=== PATIENT | female | born 1995 | race African-American/Black ===

== ENCOUNTER 2025-01-13 03:27 | Emergency (ER) | payer BC, MEDICAID ==
[~2025-01-13] VITALS: Ht 165.1 cm; Wt 73.0 kg
[2025-01-13 03:35] VITALS: TEMP 36.9; O2SAT 98
[2025-01-13] MEDS ORDERED: IBUP-2029 MT (05:53)
[2025-01-13 06:17] VITALS: BP 136/88; PULSE 80; RESP 18
[2025-01-13] MEDS: IBUPROFEN 600MG TABLET PO ONE (06:17)
== END 2025-01-13 06:33 | disposition home or self-care (01) ==
LOC: ER 03:27
DX: M79.18 Myalgia, other site (principal); I10 Essential (primary) hypertension; J45.909 Unspecified asthma, uncomplicated; Z59.01 Sheltered homelessness; Z76.5 Malingerer [conscious simulation]
CPT/HCPCS: 99283

== ENCOUNTER 2025-01-20 22:45 | Emergency (ER) | payer BC, MEDICAID ==
[~2025-01-20] VITALS: Ht 170.2 cm; Wt 85.0 kg
[~2025-01-20 22:45] MED LIST: IBUP-2029 MT
[2025-01-20 22:46] VITALS: O2SAT 99
[2025-01-20] MEDS: ACETAMINOPHEN 325MG TABLET PO ONE (23:44)
[2025-01-20 23:45] LABS: CHLORIDE 105 mEq/L (98-107); SODIUM 139 mEq/L (136-145)
[2025-01-20 23:46] LABS: CARBON DIOXIDE 26 mEq/L (21-32)
[2025-01-20 23:47] LABS: CALCIUM 9.1 mg/dL (8.7-10.4)
[2025-01-20 23:51] LABS: CREATININE 0.8 mg/dL (0.6-1.0); GLUCOSE 75 mg/dL (70-105)
[2025-01-20 23:52] LABS: UREA NITROGEN BLOOD 10 mg/dL (9-23)
[2025-01-21 00:58] LABS: ETHANOL BLOOD < 10 mg/dL (<10)
[2025-01-21 01:33] LABS: HCG SCREEN NEGATIVE
[2025-01-21 02:11] LABS: BASOPHILS % 0.4 % (0.0-2.0); DIFFERENTIAL COMMENT 0; EOSINOPHILS % 4.2 % (0.0-5.0); HEMATOCRIT. 37.5 % (36.0-48.0); HEMOGLOBIN. 12.6 g/dL (12.0-16.0); LYMPHOCYTES % 37.8 % (20.0-50.0); MEAN CORPUSCULAR HEMOGLOBIN 30.6 pg (28.0-32.0); MEAN CORPUSCULAR HGB CONC 33.6 g/dL (31.0-37.0); MEAN CORPUSCULAR VOLUME 90.9 fL (81.0-99.0); MEAN PLATELET VOLUME 10.2 fl (7.4-10.4); NEUTROPHILS % 49.6 % (40.0-76.0); PLATELET 330 x1000/uL (130-400); RED BLOOD CELL COUNT 4.12 mill/uL (4.2-5.4); RED CELL DISTRIBUTION WIDTH 13.1 % (11.6-14.6); WHITE BLOOD COUNT 8.3 x1000/uL (4.5-11.0)
[2025-01-21] MEDS ORDERED: ACET-2708 MT (03:48)
[2025-01-21 04:00] VITALS: BP 118/80; PULSE 86; RESP 16; TEMP 36.8; O2SAT 99
[2025-01-21] MEDS ORDERED: CEPH500C2 MT (17:21)
[2025-01-21] MEDS ORDERED: OFLO5DRO4 LEFT EAR (17:21)
[2025-01-21] MEDS ORDERED: NAPR-681 PO (17:21)
== END 2025-01-21 04:03 | disposition home or self-care (01) ==
LOC: ER 22:45
DX: G89.29 Other chronic pain (principal); M79.18 Myalgia, other site; Z00.00 Encounter for general adult medical examination without abnormal findings; F20.9 Schizophrenia, unspecified; I10 Essential (primary) hypertension; J45.909 Unspecified asthma, uncomplicated; Z59.00 Homelessness unspecified
CPT/HCPCS: 36415; 80048; 80320; 84703; 85025; 99283; G0480

== ENCOUNTER 2025-01-21 13:48 | Emergency (ER) | payer BC, MEDICAID ==
[~2025-01-21] VITALS: Ht 170.2 cm; Wt 85.3 kg
[~2025-01-21 13:48] MED LIST changes: +ACET-2708 MT
[2025-01-21 13:55] VITALS: O2SAT 20
[2025-01-21 14:19] VITALS: TEMP 36.7; O2SAT 100
[2025-01-21] MEDS ORDERED: OFLO5DRO4 LEFT EAR (17:21)
[2025-01-21] MEDS ORDERED: CEPH500C2 MT (17:21)
[2025-01-21] MEDS ORDERED: NAPR-681 PO (17:21)
[2025-01-21 17:45] VITALS: BP 133/58; PULSE 100; RESP 18
[2025-01-21] MEDS: IBUPROFEN 600MG TABLET PO STA (17:45)
== END 2025-01-21 17:51 | disposition home or self-care (01) ==
LOC: ER 13:48
DX: H60.92 Unspecified otitis externa, left ear (principal); F20.9 Schizophrenia, unspecified
CPT/HCPCS: 99283

== ENCOUNTER 2025-09-22 16:50 | Emergency (ER) | payer MEDICARE, MEDICAID ==
[~2025-09-22] VITALS: Ht 170.2 cm; Wt 76.0 kg
[~2025-09-22 16:50] MED LIST changes: +CEPH500C2 MT; +IBUP-1455 MT; -IBUP-2029 MT; +NAPR-681 PO; +OFLO5DRO4 LEFT EAR
[2025-09-22 16:55] VITALS: BP 127/56; PULSE 81; RESP 16; TEMP 100.5; O2SAT 100
[2025-09-22 18:19] LABS: BASOPHILS % 1.1 % (0.0-2.0); EOSINOPHILS % 5.0 % (0.0-5.0); HEMATOCRIT. 42.3 % (36.0-48.0); HEMOGLOBIN. 14.3 g/dL (12.0-16.0); LYMPHOCYTES % 42.9 % (20.0-50.0); MEAN PLATELET VOLUME 10.2 fl (7.4-10.4); MONOCYTES % 6.7 % (2.0-8.0); NEUTROPHILS % 44.3 % (40.0-76.0); PLATELET 340 x1000/uL (130-400); RED BLOOD CELL COUNT 4.68 mill/uL (4.2-5.4); RED CELL DISTRIBUTION WIDTH 12.4 % (11.6-14.6)
[2025-09-22 18:31] LABS: CREATININE 0.8 mg/dL (0.6-1.0); UREA NITROGEN BLOOD 5 mg/dL (9-23)
[2025-09-22 18:32] LABS: TROPONIN I HIGH SENSITIVITY 5 ng/L (3.0-34)
[2025-09-22 18:33] LABS: ASPARTATE AMINOTRANSFERASE 20 IU/L (<34); BILIRUBIN DIRECT < 0.1 mg/dL (<=3.0); BILIRUBIN TOTAL 0.3 mg/dL (0.1-1.0); PROTEIN TOTAL 7.6 g/dL (6.0-8.3)
[2025-09-22 18:36] LABS: HCG SCREEN NEGATIVE
[2025-09-22] MEDS: LOPERAMIDE HCL 2MG CAPSULE PO ONE (18:50)
[2025-09-22] MEDS: LOPERAMIDE HCL 2MG CAPSULE PO NR (18:50)
[2025-09-22] MEDS: ACETAMINOPHEN 500MG TABLET PO ONE (18:50)
[2025-09-22 20:51] LABS: COLOR URINE YELLOW (YELLOW); GLUCOSE URINE NEGATIVE (NEGATIVE); KETONES URINE TRACE (NEGATIVE); LEUKOCYTE ESTERASE URINE NEGATIVE (NEGATIVE); NITRITE URINE NEGATIVE (NEGATIVE); OCCULT BLOOD URINE NEGATIVE (NEGATIVE); PH URINE 6.0 (4.5-8.0); PROTEIN URINE TRACE (NEGATIVE); SPECIFIC GRAVITY URINE 1.037 (1.005-1.030); UROBILINOGEN URINE 1.0 E.U./dL (0.2-1.0)
[2025-09-22] MEDS ORDERED: LOPE2CAP MT (21:08)
[2025-09-22 21:42] LABS: CLARITY URINE SL HAZY (CLEAR)
[2025-09-22 22:00] LABS: BACTERIA URINE n; MUCUS URINE TRACE /lpf (< = 2+); RBC URINE NONE SEEN /hpf (0-2); SQUAMOUS EPITHELIAL CELL URINE 2+ /lpf (RARE/1+); WBC URINE NONE SEEN /hpf (0-2)
== END 2025-09-22 21:50 | disposition home or self-care (01) ==
LOC: ER 16:50
DX: R19.7 Diarrhea, unspecified (principal); J45.909 Unspecified asthma, uncomplicated; I11.0 Hypertensive heart disease with heart failure; I50.9 Heart failure, unspecified; F20.9 Schizophrenia, unspecified; Z76.0 Encounter for issue of repeat prescription; Z79.899 Other long term (current) drug therapy; Z88.8 Allergy status to other drugs, medicaments and biological substances
CPT/HCPCS: 36415; 74176; 80048; 80076; 81003; 83880; 84484; 84703; 85025; 93005; 99284

== ENCOUNTER 2025-09-23 02:26 | Emergency (ER) | payer MEDICARE, MEDICAID ==
[~2025-09-23] VITALS: Ht 167.6 cm; Wt 75.0 kg
[~2025-09-23 02:26] MED LIST changes: +LOPE2CAP MT
[2025-09-23 02:28] VITALS: O2SAT 99
[2025-09-23 04:33] VITALS: TEMP 98.4
[2025-09-23] MEDS: ACETAMINOPHEN 325MG TABLET PO ONE (04:33)
[2025-09-23 05:28] VITALS: BP 122/65; PULSE 89; RESP 16; O2SAT 100
== END 2025-09-23 05:35 | disposition home or self-care (01) ==
LOC: ER 02:26
DX: M79.671 Pain in right foot (principal); M79.672 Pain in left foot; J45.909 Unspecified asthma, uncomplicated; I11.0 Hypertensive heart disease with heart failure; F20.9 Schizophrenia, unspecified; Z79.899 Other long term (current) drug therapy; Z88.8 Allergy status to other drugs, medicaments and biological substances
CPT/HCPCS: 99283